=== PATIENT | female | born 1950 | race Caucasian/White ===

== ENCOUNTER → 2025-07-26 11:00 | Outpatient (REF) | payer MEDICARE, OTHER, SELFPAY | LOC: MRI 11:00 | PROVIDERS: ATTENDING PHYSICIAN Physical Medicine & Rehabilitation Pain Medicine; FAMILY PHYSICIAN Internal Medicine | DX: M48.062 Spinal stenosis, lumbar region with neurogenic claudication (principal) | CPT/HCPCS: 70250; 70360; 71046; 72148; 76014; 76015 ==